=== PATIENT | male | born 1950 | race Asian ===

== ENCOUNTER 2017-08-19 01:21 | Emergency (ER) | payer OTHER ==
[~2017-08-19] VITALS: Ht 180.3 cm; Wt 92.5 kg
[2017-08-19] MEDS ORDERED: ATOR10TA84 PO (01:36)
[2017-08-19 04:55] VITALS: BP 140/80
== END 2017-08-19 05:59 | disposition home or self-care (01) ==
LOC: EMS 01:22
DX: J02.9 Acute pharyngitis, unspecified (principal); E78.00 Pure hypercholesterolemia, unspecified; Z79.899 Other long term (current) drug therapy
CPT/HCPCS: 99283

== ENCOUNTER 2022-01-26 06:02 | Day surgery (SDC) | payer MEDICARE, OTHER ==
[2022-01-24 08:18] LABS: COVID AG,FIA SOURCE NASOPHARYNGEAL
[~2022-01-26] VITALS: Ht 180.3 cm; Wt 84.1 kg
[~2022-01-26 06:02] MED LIST: EMPA10TA3 PO; LOSA-382 PO; RINGERS SOLUTION,LACTATED 500 ML IV ONE; ROSU20TA73 PO
[2022-01-26] MEDS ORDERED: EPINEPHrine 1:1,000 [1 MG/ML] VIAL ET ONE (06:03)
[2022-01-26] MEDS ORDERED: TETRACAINE HCL/PF 0.5% 4 ML OPHTHALMIC SOLUTION OD ONE (06:03)
[2022-01-26] MEDS ORDERED: POVIDONE-IODINE 10% 15 ML SOLUTION UD TP ONE (06:03)
[2022-01-26] MEDS ORDERED: LIDOCAINE/PF 1% 2 ML VIAL CAUDAL ONE (06:03)
[2022-01-26] MEDS ORDERED: CHONDR SULF A SOD/HYALURONATE 1.05 ML KIT IO ONE (06:03)
[2022-01-26] MEDS ORDERED: BALANCED SALT 15 ML OPHTHALMIC IRRIG.SOLN IO ONE (06:03)
[2022-01-26] MEDS ORDERED: RINGERS SOLUTION,LACTATED 500 ML IV ONE (06:42)
[2022-01-26] MEDS ORDERED: PHENYLEPHRINE HCL 2.5% 2 ML OPHTHALMIC SOLUTION ONE (06:42)
[2022-01-26] MEDS ORDERED: TROPICAMIDE 1% 2 ML OPHTHALMIC SOLUTION ONE (06:42)
[2022-01-26] MEDS ORDERED: MOXIFLOXACIN HCL 0.5% 3 ML OPHTHALMIC SOLUTION ONE (06:42)
[2022-01-26] MEDS ORDERED: KETOROLAC TROMETHAMINE 0.5% 5 ML OPHTHALMIC SOLUTION ONE (06:42)
[2022-01-26] MEDS: PHENYLEPHRINE HCL 2.5% 2 ML OPHTHALMIC SOLUTION OS SCH ×3 (06:58→07:07)
[2022-01-26] MEDS: MOXIFLOXACIN HCL 0.5% 3 ML OPHTHALMIC SOLUTION OS SCH ×3 (06:59→07:07)
[2022-01-26] MEDS: KETOROLAC TROMETHAMINE 0.5% 5 ML OPHTHALMIC SOLUTION OS SCH ×3 (06:59→07:07)
[2022-01-26] MEDS: TROPICAMIDE 1% 2 ML OPHTHALMIC SOLUTION OS SCH ×3 (06:59→07:07)
[2022-01-26] MEDS ORDERED: FentaNYL CITRATE PF 100 MCG/2 ML VIAL IVP ONE (12:00)
[2022-01-26] MEDS ORDERED: MIDAZOLAM HCL 2 MG/2 ML VIAL IVP ONE (12:00)
== END 2022-01-26 09:15 | disposition home or self-care (01) ==
LOC: SURGERY 06:02
PROVIDERS: ATTEND Ophthalmology
DX: H25.12 Age-related nuclear cataract, left eye (principal); Z98.890 Other specified postprocedural states; Z72.89 Other problems related to lifestyle; I10 Essential (primary) hypertension; E11.9 Type 2 diabetes mellitus without complications; Z79.899 Other long term (current) drug therapy
CPT/HCPCS: J0171; J2250; J3010; J3490; J7120; Q9967